=== PATIENT | male | born 1955 | race American Indian/Alaskan Native ===

== ENCOUNTER 2018-06-23 13:50 | Outpatient (CLI) | payer MEDICAID ==
--- NOTE | 2018-06-23 16:04 | Ultrasound Report ---
FINAL REPORT EXAM: US TESTICULAR DOPPLER COMP HISTORY: HYDROCELE TECHNIQUE: Grayscale and color and spectral doppler ultrasound imaging of the scrotum was performed. PRIORS: None. FINDINGS: The left testicle is homogeneous in echogenicity without focal lesion. There is a focal hypoechoic ar ea within the inferior aspect of the right testicle measuring 3.3 x 1.1 x 1.7 centimeters. No interna l color flow was seen. Normal flow is seen to the testes. Normal arterial and venous waveforms were s een within the testes. The right testicle measures 5.1 x 2.7 x 3.6 centimeters. The left testicle jose a sures 3.9 x 2.8 x 2.4 centimeters. The epididymides are normal. No varicocele. There is a large right and small left hydroceles. IMPRESSION: 1. Nonspecific hypoechoic area in the right testicle may represent tubular ectasia of the rete testis versus a testicular neoplasm. 2. Large right hydrocele. 3. Small left hydrocele.
== END 2018-06-23 13:51 | disposition home or self-care (01) ==
LOC: US 13:50
PROVIDERS: ATTEND Urology
DX: N43.3 Hydrocele, unspecified (principal)
CPT/HCPCS: 93975

== ENCOUNTER 2020-12-20 10:01 | Emergency (ER) | payer MEDICARE ==
--- NOTE | 2020-12-20 11:05 | Emergency Department Report ---
ED General Adult HPI - General Chief complaint: Skin/Abscess/Foreign Body Stated complaint: CHICKEN STUCK IN THROAT Time Seen by Provider: 12/20/20 10:47 Source: patient Mode of arrival: Ambulatory Limitations: No Limitations - History of Present Illness Initial comments: CC: "I had a chicken stuck in my throat." HPI: This is a 65-year-old male with history of hypertension, CHF who presents with food stuck in his throat which occurred at 1 AM. Patient normally wears dentures. However he has been unable to wear dentures due to irritation and ill fit. Patient bit into the gristle portion of the chicken bone. This portion of food was stuck in his throat throughout the night. While in the emergency department, he felt the food pass. He is now able to swallow without irritation. Thank you he is currently asymptomatic. -: Sudden, This morning (9 AM this morning) Radiation: other (chicken gristle stuck in throat) Consistency: now resolved Improves with: none Worsens with: none Associated Symptoms: denies other symptoms - Related Data Allergies Allergy/AdvReac Type Severity Reaction Status Date / Time No Known Allergies Allergy Verified 12/20/20 10:02 ED Review of Systems ROS: Stated complaint: CHICKEN STUCK IN THROAT Other details as noted in HPI Comment: All other systems reviewed and negative Constitutional: denies: fever, malaise Respiratory: denies: cough, shortness of breath Cardiovascular: denies: chest pain Gastrointestinal: denies: abdominal pain, nausea, vomiting ED Past Medical Hx - Past Medical History Previous Medical History?: Yes Hx Hypertension: Yes Hx Congestive Heart Failure: Yes - Surgical History Past Surgical History?: No - Social History Smoking Status: Never Smoker Substance Use Type: None ED Physical Exam - General Limitations: No Limitations General appearance: alert, in no apparent distress - Head Head exam: Present: atraumatic, normocephalic - Eye Eye exam: Present: normal appearance - ENT ENT exam: Present: mucous membranes moist - Neck Neck exam: Present: normal inspection, full ROM - Respiratory Respiratory exam: Present: normal lung sounds bilaterally. Absent: respiratory distress, wheezes, rales, rhonchi - Cardiovascular Cardiovascular Exam: Present: regular rate, normal rhythm, normal heart sounds. Absent: systolic murmur, diastolic murmur, rubs, gallop - GI/Abdominal GI/Abdominal exam: Present: soft, normal bowel sounds. Absent: distended, tenderness, guarding, rebound - Rectal Rectal exam: Present: deferred - Extremities Exam Extremities exam: Present: normal inspection - Neurological Exam Neurological exam: Present: alert, oriented X3 - Psychiatric Psychiatric exam: Present: normal affect, normal mood - Skin Skin exam: Present: warm, dry, intact, normal color. Absent: rash ED Course Vital Signs 12/20/20 12/20/20 10:07 10:49 Temperature 99.4 F Pulse Rate 76 72 Respiratory 20 19 Rate Blood Pressure 152/75 160/70 O2 Sat by Pulse 96 96 Oximetry ED Medical Decision Making - Medical Decision Making Food stuck in throat, temporary dysphagia: Now resolved. Patient tolerated 8 ounces of water under my observation. I recommended using dentures to chew food. He plans to have his dentures refitted by dentist. I also recommended soft diet unless using dentures. Critical care attestation.: If time is entered above; I have spent that time in minutes in the direct care of this critically ill patient, excluding procedure time. ED Disposition Clinical Impression: Dysphagia, Chicken bone in esophagus Disposition: DC-01 TO HOME OR SELFCARE Is pt being admited?: No Does the pt Need Aspirin: No Condition: Stable Instructions: Dysphagia Eating Plan, Bite Size Food
== END 2020-12-20 11:35 | disposition home or self-care (01) ==
LOC: ED 10:01
CPT/HCPCS: 99282